=== PATIENT | female | born 1950 | race Caucasian/White ===

== ENCOUNTER 2024-08-18 19:18 | Inpatient (IN) | payer OTHER, SELFPAY ==
[2024-08-18] VITALS (8 sets, daily range): BP systolic 90–121; BP diastolic 65–97; BMI 22.8; BMI 22.1
--- NOTE | 2024-08-18 14:13 | ED.GENMED ---
History of Present Illness
General
Chief Complaint: Breathing Problem
Source: patient
Exam Limitations: none
Time Seen by Provider: 08/18/24 14:03
History of Present Illness
History of Present Illness:
See MDM
Past History
Past History
ED Past Medical History: COPD, HTN and Hypercholesterolemia
ED Past Surgical History: Appendectomy, Bowel resection and Other (All Teeth removed)
Social History
Tobacco: Former smoker
Alcohol: None
Personal:
Living: with family
Family History
Family History: Negative Diabetes, Hypertension or CAD
Phy Exam
Physical Exam
Physical Exam:
See MDM
Scores
Heart Failure Risk
Heart Failure Risk Score: Not Applicable
Course
Orders/Labs/Results
Orders:
Orders
08/18/24 13:41
Electrocardiogram (*1) Urgent
Reason for Study: Shortness of Breath
EKG- Treatment ONCE
08/18/24 14:12
Ipratropium/Albuterol Sulfate [Duoneb] 3 ml INH R NOW STA
CR Chest - 2 Views Urgent
Comment:
Reason For Exam: SOB
08/18/24 14:13
CT Abd/pelvis W Iv Cont Urgent
Comment:
Reason For Exam: general abd pain
0.9% Sodium Chloride 1000 ml [Nss] 1,000 ml IV BOLUS
08/18/24 14:18
COVID-19 Antigen Urgent
Source: Nasal Swab
Complete Blood Count/With Diff Urgent
Comprehensive Metabolic Panel Urgent
Lipase Urgent
Influenza A+B Rapid Molecular Urgent
JENNIFER Source: Nasal Swab
Specimen Description:
08/18/24 17:23
Piperacillin/Tazo 3.375 Gram [Zosyn] 3.375 gram in 50 ml IV NOW
Vancomycin [Vancocin] 1,500 mg 0.9% Sodium Chloride 500 ml [Nss] 500 ml IV NOW
Abnormal Lab Results
08/18/24
14:18
WBC 13.1 H 10^3/uL
(4.8-10.8)
MCHC 32.6 L g/dL
(33.0-37.0)
MPV 10.6 H fL
(7.4-10.4)
Abs Immat Gran (auto) 0.1 H 10^3/uL
(0-0.05)
Absolute Neuts (auto) 12.2 H 10^3/uL
(1.4-6.5)
Absolute Lymphs (auto) 0.4 L 10^3/uL
(1.2-3.4)
Immature Gran % 0.7 H %
(0-0.5)
Neutrophils % 93.2 H %
(42.2-75.2)
Lymphocytes % 2.7 L %
(20.5-51.1)
Carbon Dioxide 31 H mmol/L
(22-30)
Creatinine 0.5 L mg/dL
(0.6-1.0)
Glucose 140 H mg/dl
(70-99)
ALT 41 H U/L
(0-35)
Total Protein 5.8 L g/dl
(6.3-8.2)
Albumin 3.2 L g/dl
(3.5-5.0)
08/18/24 14:18
08/18/24 14:18
Vital Signs
Initial and Last Documented VS:
Initial Vital Signs
Temp Pulse Resp BP Pulse Ox
98.4 F 108 22 121/76 89
08/18/24 13:36 08/18/24 13:36 08/18/24 13:36 08/18/24 13:36 08/18/24 13:36
Last Documented Vital Signs
Temp Pulse Resp BP Pulse Ox
98.4 F 102 23 110/77 96
08/18/24 13:36 08/18/24 17:15 08/18/24 17:15 08/18/24 14:23 08/18/24 17:15
MDM/Problems Addressed
Differential Diagnosis Includes:
HPI and MDM Narrative:
74-year-old female presenting with 3 weeks of shortness of breath. She does have a history of COPD and is chronically on 2 to 4 L nasal cannula. Patient states it has significantly worsened in the past few days. There is now associated with
nausea and abdominal pain. On exam, she does have a very faint basilar expiratory wheeze. She is on 10 mg of prednisone daily. She is not interested in increasing her steroids. Will give a DuoNeb and obtain chest x-ray. Patient does have vague
generalized abdominal pain. Will obtain CT
Physical exam
General: Well appearing and non-toxic
HEENT: protecting airway
Neck: appears supple
CV: No evidence of cyanosis. Mild tachycardia
Resp: No accessory muscle use. Mild expiratory wheeze at bases
Abd: Non-distended. Generalized tenderness without rebound
Extremities: No deformities. No unilateral leg edema or tenderness devious palpation
Neuro: alert
Psych: Normal affect
Skin: Intact
Problems Addressed including Acute and Chronic Conditions affecting care:
1. Shortness of breath
Acuity: acute
Prognosis: stable
Details: Potentially COPD exacerbation. She is stable on 2 L nasal cannula. Will obtain chest x-ray and provide DuoNeb
2. Abdominal pain
Acuity: acute
Prognosis: stable
Details: Will obtain CT A/P
Updates
Chest x-ray concerning for right middle lobe pneumonia. CT shows evidence of colitis. Will start vancomycin and Zosyn to cover both sources. Given her prior history, will admit
Differential Diagnosis (but not limited to): COPD exacerbation, viral syndrome, pneumonia, pancreatitis, cholecystitis
Testing considered: Right upper quadrant ultrasound
Drug therapy (if applicable): OTC meds, please see d/c instruction regarding Rx drugs
Amount and/or Complexity of Data Reviewed
Clinical info obtained from: Patient
External data reviewed: N/A
Labs I independently reviewed (but not limited to): Leukocytosis
Radiology: X-ray independently reviewed: Chest x-ray shows right middle lobe pneumonia
The CT scan was personally and independently reviewed. In addition, official CT report reviewed.
Pulse Ox: not hypoxic
EKG independently reviewed: Sinus tachycardia, normal axis, PVCs, no STEMI
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
Critical Care: N/A
Risk of Complication:
Social Determinants of health: Good social support
Discussed with other providers: Hospitalist
Escalation of Care includes Admit/Obs: Given her chronic COPD, will start IV antibiotics for her pneumonia and admit
Occasional wrong word or 'sound a like' substitutions may have occurred due to the inherent limitations of voice recognition software. Read the chart carefully and recognize, using context, where substitutions have occurred.
*Critical Care Note
Total Time (30-74mins, 75-104mins- exclusive of procedures): Not Applicable
ED Attending Note
-
Portions of this chart may have been created with voice recognition software.� Occasional wrong word or��sound alike� substitutions may have occurred due to the inherent limitations of voice recognition software.
Discharge Plan
Departure
Patient Disposition: Admit
Date of Disposition: 08/18/24
Time of Disposition: 17:26
Admit to: Med/Surg
Presentation/result/management discussed w/ accepting MD/DO: Hospitalist
Discharge Problem:
PNA (pneumonia), Colitis
Prescriptions:
No Action
lorazepam 1 MG tablet
2 mg PO HSPRN PRN (Reason: sleep/anxiety)
ipratropium-albuterol 3 ML solution for nebulization
3 ml inhalation R QID
atenolol 25 MG tablet
25 mg PO HS
albuterol sulfate 1 PUFF HFA aerosol inhaler
2 puff inhalation R Q4HPRN PRN (Reason: shortness of breath)
B-complex with vitamin C 1 CAPLET tablet
1 cap PO DAILY
vitamin E (dl, acetate) 100 UNITS capsule
100 units PO DAILY
cholecalciferol (vitamin D3) 1,000 UNITS tablet
1,000 units PO DAILY
fluoxetine 10 MG capsule
10 mg PO DAILY Qty: 30 0RF
sertraline 50 MG tablet
150 mg PO DAILY Qty: 30 0RF
prednisone 10 MG tablet
10 mg PO DAILY Qty: 22 0RF
Rx Instructions:
Take 40mg 8/1, 30mg 8/2-8/4, 20mg 8/5-8/7, 10mg 8/8-8/10
azithromycin 250 MG tablet
250 mg PO DAILY Qty: 30 0RF
Referrals:
Derrick Crowe, DO [Family Provider] -
Interventions
Interventions:
*Risk Screen - Suicide Last Done: 08/18/24 13:36
*General Assessment Last Done: 08/18/24 13:36
*Neglect/Abuse Screening Last Done: 08/18/24 14:22
*ED- Fall Risk Assessment Last Done: 08/18/24 14:22
*ED COVID-19 Vaccine History Last Done: 08/18/24 13:36
ED- Cardiac Assessment Last Done: 08/18/24 14:23
ED- Pulmonary Assessment Last Done: 08/18/24 14:23
Discharge Date and Time
Print Language: LAO
[2024-08-18] MEDS: NSS 1000 IV ×2 (14:18→21:11)
[2024-08-18] MEDS: DUONEB 3 ML INH ×2 (14:19→20:31)
[2024-08-18 14:37] LABS: % Basophils 0.5 % (0-2); % Eosinophils 0.2 % (0-6); % Immature Granulocytes 0.7 % (0-0.5); % Lymphocytes 2.7 % (20.5-51.1); % Monocytes 2.7 % (1.7-9.3); % Neutrophils 93.2 % (42.2-75.2); Absolute Basophils 0.1 10^3/uL (0-0.2); Absolute Immature Granulocytes 0.1 10^3/uL (0-0.05); Absolute Lymphocytes 0.4 10^3/uL (1.2-3.4); Absolute Monocytes 0.4 10^3/uL (0.1-0.6); Absolute Neutrophils 12.2 10^3/uL (1.4-6.5); Hematocrit 37.1 % (37.0-47.0); Hemoglobin 12.1 g/dL (12.0-16.0); Mean Corp Hgb Conc. 32.6 g/dL (33.0-37.0); Mean Corpuscular Hgb 28.8 pg (27.0-31.0); Mean Corpuscular Volume 88.3 fL (81.0-99.0); Mean Platelet Volume 10.6 fL (7.4-10.4); Nucleated Red Blood Cells % 0 %; Platelet Count 206 10^3/uL (130-400); Red Cell Dist. Width 13.3 % (11.5-14.5); White Blood Cell Count 13.1 10^3/uL (4.8-10.8)
[2024-08-18 14:45] LABS: ALT (SGPT) 41 U/L (0-35); AST (SGOT) 30 U/L (14-36); Albumin 3.2 g/dl (3.5-5.0); Alkaline Phosphatase 101 U/L (38-126); Blood Urea Nitrogen 13 mg/dl (7-17); Calcium 8.8 mg/dl (8.4-10.2); Carbon Dioxide 31 mmol/L (22-30); Chloride 104 mmol/L (98-107); Estimated Creatinine Clearance 60 ml/min; Glucose 140 mg/dl (70-99); Lipase 51 U/L (23-300); Potassium 3.8 mmol/L (3.5-5.1); Sodium 140 mmol/L (135-145); Total Bilirubin 0.6 mg/dl (0.2-1.3); Total Protein 5.8 g/dl (6.3-8.2); eGFR > 60.00
[2024-08-18 14:59] LABS: COVID-19 Antigen Negative (Negative)
--- NOTE | 2024-08-18 17:32 | HPS.HSE ---
Family Physician
-
Family Physician: Derrick Crowe
Chief Complaint
-
shortness of breath
History of Present Illness
74 female COPD on 2 L at bedtime as needed baseline hypertension hyperlipidemia history appendectomy bowel resection presents with persistent abdomen discomfort intermittent diarrhea nausea past few weeks. Denies vomiting. Endorses appetite loss.
Shortness of breath progressively worsened past week requiring oxygen at home continuously. Denies fevers reports chills. Endorses coughing previously productive now dry. Respiratory status stable on 2 L. Afebrile sinus tachy but blood pressure
stable. Labs notable for mild leukocytosis. Possible sepsis though no lactic acidosis. Chest x-ray and CT abdomen pelvis concerning for pneumonia and colitis.
Medical History
Past Medical History
Past Medical History: Reports Other (As above)
Past Surgical History: Reports Other (As above)
Social History
Tobacco: Non-smoker
Alcohol: Occasional
Drug: None
Living: With Family
Employment: Retired
Family History
Family History: Not pertinent (Reviewed)
Allergies / Home Medications
Allergies reflects when Allergies were last updated in [email or web address].
Home Medications with original date entered in [email or web address]
Allergy/Medication List:
Allergies
Allergy/AdvReac Type Severity Reaction Status Date / Time
codeine Allergy Itching Verified 08/18/24 13:40
Home Medications
lorazepam 1 mg tablet 1 mg PO HSPRN PRN sleep/anxiety 03/01/18
atenolol 25 mg tablet 25 mg PO HS 06/14/18
ipratropium 0.5 mg-albuterol 3 mg (2.5 mg base)/3 mL nebulization soln 3 ml inhalation R QID 06/14/18
budesonide 160 mcg-glycopyr 9 mcg-formot 4.8 mcg/actuation HFA inhaler (Breztri Aerosphere) 2 inh inhalation R BID 08/18/24
levalbuterol tartrate 45 mcg/actuation aerosol inhaler 2 inh inhalation R Q6HPRN PRN sob 08/18/24
lorazepam 1 mg tablet 0.5 mg PO DAILYPRN PRN anxiety 08/18/24
prednisone 5 mg tablet 10 mg PO DAILY 08/18/24
sertraline 100 mg tablet 150 mg PO DAILY 08/18/24
Review of Systems
-
A 12 point ROS was completed and negative except as noted: Yes
Constitutional: Reports Other (As below)
Physical Exam
Vital Signs
Vital Signs
Temp Pulse Resp BP Pulse Ox
98.4 F 102 23 110/77 96
08/18/24 13:36 08/18/24 17:15 08/18/24 17:15 08/18/24 14:23 08/18/24 17:15
Physical Exam
General: Other (As below)
Laboratory Results
-
08/18/24 14:18
08/18/24 14:18
Laboratory Results
Total Bilirubin 0.6 mg/dl (0.2-1.3) 08/18/24 14:18
AST 30 U/L (14-36) 08/18/24 14:18
ALT 41 U/L (0-35) H 08/18/24 14:18
Alkaline Phosphatase 101 U/L (38-126) 08/18/24 14:18
Lipase 51 U/L (23-300) 08/18/24 14:18
Impression/Plan
-
ROS
General: Denies fever reports chills
Neuro: Denies seizure shaking loss of consciousness dizziness vertigo
Psych: denies depression hallucinations confusion manic episodes
Endocrine: Denies polyuria polydipsia polyphagia
HEENT: Denies blindness visual disturbances epistaxis
Pulmonary: reports dry cough sob requiring oxygen supplementation
Cardiovascular: denies chest pain palpitations leg swelling
Hematology: denies signs symptoms of anemia easy bruising/bleeding
Gastrointestinal: reports nausea right sided abd pain tenderness intermittent diarrhea denies vomiting hematemesis hematochezia melena
Genito-Urinary: denies retention incontinence dysuria
Musculoskeletal: denies joint pain weakness
Dermatology: denies rash laceration bruising
Physical Exam
General: No pallor, cyanosis, or jaundice.
HEENT: Throat clear. PERRLA Normocephalic atraumatic
NECK: Supple. No JVD Carotid Bruits
RESPIRATORY: Lungs clear to auscultation. No crackles wheezes stridor
CVS: S1, S2 sinus tachy. No murmur, rub or gallop.
ABDOMEN: Soft, mild moderate tenderness. No distension. BS+/normal.
EXTREMITIES: No peripheral cyanosis or edema.
REPAIRER ART OBJECTS: AOx3. conversant coherent
IMPRESSION:
74 female COPD on 2 L at bedtime as needed baseline hypertension hyperlipidemia history appendectomy bowel resection depression/anxiety presents with persistent abdomen discomfort intermittent diarrhea nausea past few weeks. Denies vomiting.
Endorses appetite loss. Shortness of breath progressively worsened past week requiring oxygen at home continuously. Denies fevers reports chills. Endorses coughing previously productive now dry. Respiratory status stable on 2 L. Afebrile sinus
tachy but blood pressure stable. Labs notable for mild leukocytosis. Possible sepsis though no lactic acidosis. Chest x-ray and CT abdomen pelvis concerning for pneumonia and colitis.
PLAN:
#Sepsis (tachy leukocytosis) stable BP no lactic acidosis
#Pneumonia
#Colitis
#Acute on Chronic Respiratory Insufficiency
#COPD baseline 2L prn bedtime
Tele admit
cont empiric Vanc Zosyn
MRSA screen
Check blood sputum stool cultures
cont O2 supplementation maintain sat >92%
trend wbc monitor for fever
Tylenol Toradol prn pain
cont home inhalers scheduled nebulizer treatments
cont home prednisone 10 mg daily
#Reported Hx Hypertension
cont home atenolol with holding parameters
#Reported hx HLD
check lipid panel in AM
#Depression/Anxiety
cont home Sertraline prn Ativan for anxiety and sleep
DVT ppx Lovenox
GI ppx protonix
Full Code per patient
I spent a total of 80 minutes with the patient or on the floor. More than 50% of this time involved counseling and coordination of care.
[2024-08-18] MEDS: ZOSYN 50 IV ×2 (17:35→23:38)
[2024-08-18] MEDS: VANCOCIN 530 MG IV (17:50)
[2024-08-18 18:53] LABS: Lactic Acid 1.1 mmol/L (0.7-2.0)
--- NOTE | 2024-08-18 20:30 | PTCARENOTE ---
Pt brought to unit from ED via stretcher. Pt ambulated to bed. A&Ox3 on 2L of oxygen. Oriented to unit. Call light within reach. Plan of care ongoing.
[2024-08-18] MEDS: SYMBICORT 160/4.5 MCG INHALER 2 PUFF INH (20:43)
[2024-08-18] MEDS: TYLENOL 650 MG PO (21:09)
[2024-08-18] MEDS: PROTONIX 40 MG PO (21:09)
[2024-08-18] MEDS: TENORMIN 25 MG PO (21:10)
--- NOTE | 2024-08-18 21:22 | PHA.VAN.IN ---
Assessment
- Assessment
Renal Function: Appears similar to baseline
Concomitant Antimicrobials: ZOSYN
- Previous Dosing Experience
Previous Regimen: NONE
AUC Dosing Plan
- Dosing Variables
Dosing Weight (kg): 51.3
Dosing CrCl (ml/min): 60
Vd coefficient (L/kg): 0.7
- Empiric Dosing
Initial / Loading Dose: 1500MG
Maintenance Regimen: 1GM IV Q24H
Estimated AUC (mcg*h/mL): 528
Estimated Peak (mcg*h/mL): 38.3
Estimated Trough (mcg/ml): 11.0
Estimated Half Life (H): 12.8
Pharmacokinetics Vancomycin I
- -
Patient Age: 74
Patient Sex: Female
Vancomycin Day #: 1
Indication: Pulmonary/Respiratory (SEPSIS)
Requesting Provider: BEE
Height / Weight:
Height 5 ft
Actual Weight 51.284 kg
Pertinent Past Medical History: COPD
- Vital Signs / Lab Results
Temp Pulse Resp BP Pulse Ox
98.0 F 100 18 121/75 93
08/18/24 20:38 08/18/24 21:10 08/18/24 20:47 08/18/24 21:10 08/18/24 20:47
Lab Results - Hematology
08/18/24
14:18
WBC 13.1 H
Lab Results - Chemistry
08/18/24
14:18
BUN 13
Creatinine 0.5 L
Estimated Creat Clear 60
Albumin 3.2 L
08/18/24
18:26
Lactic Acid 1.1
Microbiology Results
08/18/24 14:18 Influenza Types A & B (ÓSCAR) - Final
Nasal Swab Negative for Influenza A & B, NAAT
Negative results must be combined with clinical observations
and patient history.
Nucleic Acid Amplification test (NAAT)performed on the
[employer] NOW platform.
[2024-08-18] MEDS: ATIVAN 1 MG PO (21:26)
[2024-08-18] MEDS: TORADOL 15 MG IV (23:53)
[2024-08-19] VITALS (7 sets, daily range): BP systolic 99–116; BP diastolic 53–72; BMI 22.1
[2024-08-19] MEDS: ZOSYN 50 IV ×3 (05:00→17:16)
[2024-08-19] MEDS: VANCOCIN 200 IV (05:34)
[2024-08-19 06:22] LABS: Hematocrit 33.1 % (37.0-47.0); Hemoglobin 10.6 g/dL (12.0-16.0); Mean Corpuscular Hgb 28.8 pg (27.0-31.0); Mean Corpuscular Volume 89.9 fL (81.0-99.0); Mean Platelet Volume 10.8 fL (7.4-10.4); Platelet Count 191 10^3/uL (130-400); Red Blood Cell Count 3.68 10^6/uL (4.20-5.40); Red Cell Dist. Width 13.3 % (11.5-14.5); White Blood Cell Count 7.1 10^3/uL (4.8-10.8)
[2024-08-19 06:42] LABS: Blood Urea Nitrogen 10 mg/dl (7-17); Carbon Dioxide 30 mmol/L (22-30); Chloride 107 mmol/L (98-107); Estimated Creatinine Clearance 51 ml/min; Glucose 95 mg/dl (70-99); Magnesium 1.6 mg/dl (1.6-2.3); Potassium 3.7 mmol/L (3.5-5.1); Sodium 143 mmol/L (135-145); eGFR > 60.00
--- NOTE | 2024-08-19 07:04 | W.PN.HOSP.TC ---
Today's Communication/Plan
-
see a/p
Assessment / Plan
Assessment / Plan
Physical Exam
General: No pallor, cyanosis, or jaundice.
HEENT: Throat clear. PERRLA Normocephalic atraumatic
NECK: Supple. No JVD Carotid Bruits
RESPIRATORY: Lungs clear to auscultation. No crackles wheezes stridor
CVS: S1, S2 sinus tachy. No murmur, rub or gallop.
ABDOMEN: Soft, mild moderate tenderness. No distension. BS+/normal.
EXTREMITIES: No peripheral cyanosis or edema.
REPORT DEVELOPER: AOx3. conversant coherent
IMPRESSION:
74 female COPD on 2 L at bedtime as needed baseline hypertension hyperlipidemia history appendectomy bowel resection depression/anxiety presents with persistent abdomen discomfort intermittent diarrhea nausea past few weeks. Denies vomiting.
Endorses appetite loss. Shortness of breath progressively worsened past week requiring oxygen at home continuously. Denies fevers reports chills. Endorses coughing previously productive now dry. Respiratory status stable on 2 L. Afebrile sinus
tachy but blood pressure stable. Labs notable for mild leukocytosis. Possible sepsis though no lactic acidosis. Chest x-ray and CT abdomen pelvis concerning for pneumonia and colitis.
PLAN:
#Sepsis (tachy leukocytosis) stable BP no lactic acidosis
#Pneumonia
#Colitis
#Acute on Chronic Respiratory Insufficiency
#COPD baseline 2L prn bedtime
Tele admit
cont Zosyn
MRSA neg, vanc discontinued
follow blood sputum stool cultures
Cdiff neg
cont O2 supplementation maintain sat >92%, wean as tolerated
trend wbc monitor for fever
Tylenol Toradol prn pain
cont home inhalers scheduled nebulizer treatments
cont home prednisone 10 mg daily
compazine prn nausea
#Reported Hx Hypertension
cont home atenolol with holding parameters
#Reported hx HLD
check lipid panel
#Depression/Anxiety
cont home Sertraline prn Ativan for anxiety and sleep
DVT ppx Lovenox
GI ppx protonix
Full Code
I spent a total of 50 minutes with the patient or on the floor. More than 50% of this time involved counseling and coordination of care.
Anticipated Discharge: 24 - 48 hours
Subjective/Interval History
-
Date of Service: August 19, 2024
no acute distress. reports some improvement in appetite nausea. Diarrhea persists.
Objective Data
-
Labs:
Laboratory Results
08/19/24
05:55
WBC 7.1
Hgb 10.6 L
Hct 33.1 L
Plt Count 191
Sodium 143
Potassium 3.7
Chloride 107
Carbon Dioxide 30
BUN 10
Creatinine 0.7
Glucose 95
Calcium 8.0 L
Vital Signs:
Vital Signs
Temp Pulse Resp BP Pulse Ox
98.0 F 72 17 111/72 97
08/19/24 03:11 08/19/24 03:11 08/19/24 03:11 08/19/24 03:11 08/19/24 03:11
[2024-08-19] MEDS: VENTOLIN NEBULES 2.5 MG INH ×4 (07:16→20:26)
[2024-08-19] MEDS: SYMBICORT 160/4.5 MCG INHALER 2 PUFF INH ×2 (07:17→20:27)
[2024-08-19] MEDS: SPIRIVA RESPIMAT 2.5 MCG 2 PUFF INH (07:17)
[2024-08-19] MEDS: PROTONIX 40 MG PO (07:27)
[2024-08-19] MEDS: DELTASONE PO ×2 (07:27→07:33)
[2024-08-19] MEDS: ZOLOFT 150 MG PO (07:27)
[2024-08-19] MEDS: TORADOL 15 MG IV ×2 (07:55→18:33)
[2024-08-19] MEDS: MAGNESIUM SULFATE 100 IV (09:49)
[2024-08-19] MEDS: COMPAZINE 10 MG IV (11:18)
[2024-08-19] MEDS: NSS IV (11:57)
--- NOTE | 2024-08-19 15:28 | CM ---
Met with patient at bedside; initial assessment completed
Pharmacy verified: [facility] @ [address], [place]
Some financial insecurity; provided [employer] information
Lives in a multilevel home; her 70 yr old sister lives with her; 5 steps to enter; 16 steps to 2nd floor bed/bath; powder room 1st floor
PLOF: independent with ambulation, stairs, ADLs; drives; retired; Needs Oxygen 2-3 liters @ night
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
NO SNF or Home Health utilization history
Sister will transport home
Plan: PT assessment pending; CM will monitor for disposition needs
[2024-08-19] MEDS: LOVENOX 40 MG SC (17:16)
[2024-08-19] MEDS: TENORMIN 25 MG PO (21:55)
[2024-08-20] VITALS (7 sets, daily range): BP systolic 112–142; BP diastolic 64–90; O2SAT 86
[2024-08-20] MEDS: ZOSYN 50 IV ×4 (00:17→17:17)
[2024-08-20] MEDS: TORADOL 15 MG IV ×3 (01:10→23:54)
[2024-08-20] MEDS: ATIVAN 1 MG PO ×2 (02:32→23:52)
--- NOTE | 2024-08-20 06:25 | W.PN.HOSP.TC ---
Today's Communication/Plan
-
see a/p
Assessment / Plan
Assessment / Plan
Physical Exam
General: No pallor, cyanosis, or jaundice.
HEENT: Throat clear. PERRLA Normocephalic atraumatic
NECK: Supple. No JVD Carotid Bruits
RESPIRATORY: Lungs clear to auscultation. No crackles wheezes stridor
CVS: S1, S2 sinus tachy. No murmur, rub or gallop.
ABDOMEN: Soft, mild moderate tenderness. No distension. BS+/normal.
EXTREMITIES: No peripheral cyanosis or edema.
BRICK CATCHER: AOx3. conversant coherent
IMPRESSION:
74 female COPD on 2 L at bedtime as needed baseline hypertension hyperlipidemia history appendectomy bowel resection depression/anxiety presents with persistent abdomen discomfort intermittent diarrhea nausea past few weeks. Denies vomiting.
Endorses appetite loss. Shortness of breath progressively worsened past week requiring oxygen at home continuously. Denies fevers reports chills. Endorses coughing previously productive now dry. Respiratory status stable on 2 L. Afebrile sinus
tachy but blood pressure stable. Labs notable for mild leukocytosis. Possible sepsis though no lactic acidosis. Chest x-ray and CT abdomen pelvis concerning for pneumonia and colitis.
PLAN:
#Sepsis (tachy leukocytosis) stable BP no lactic acidosis
#Pneumonia
#Colitis
#Acute on Chronic Respiratory Insufficiency
#COPD baseline 2L prn bedtime
Tele admit
cont Zosyn, to transition to oral abx tomorrow if remains stable/continues to improve
Home oxygen assessment in AM
MRSA neg, vanc discontinued
follow blood sputum stool cultures NGTD
sputum culture over-contaminated
Cdiff neg
cont O2 supplementation maintain sat >92%, wean as tolerated
trend wbc monitor for fever
Tylenol Toradol prn pain
cont home inhalers scheduled nebulizer treatments
cont home prednisone 10 mg daily
compazine prn nausea
#Reported Hx Hypertension
cont home atenolol with holding parameters
#Reported hx HLD
lipid panel appreciated wnl
#Depression/Anxiety
cont home Sertraline prn Ativan for anxiety and sleep
PT eval appreciated no skilled needs
DVT ppx Lovenox
GI ppx protonix
Full Code
I spent a total of 50 minutes with the patient or on the floor. More than 50% of this time involved counseling and coordination of care.
Anticipated Discharge: 24 - 48 hours
Subjective/Interval History
-
Date of Service: August 20, 2024
No acute distress. Reports symptoms improving, including diarrhea.
Objective Data
-
Labs:
Laboratory Results
08/20/24
06:00
WBC Pending
Hgb Pending
Hct Pending
Plt Count Pending
Sodium Pending
Potassium Pending
Chloride Pending
Carbon Dioxide Pending
BUN Pending
Creatinine Pending
Glucose Pending
Calcium Pending
Vital Signs:
Vital Signs
Temp Pulse Resp BP Pulse Ox
97.8 F 72 17 120/79 95
08/20/24 03:23 08/20/24 03:23 08/20/24 03:23 08/20/24 03:23 08/20/24 03:23
I&O
08/18/24 08/19/24 08/20/24
06:59 06:59 06:59
Intake Total 120 / 120
Balance 120 / 120
[2024-08-20] MEDS: SPIRIVA RESPIMAT 2.5 MCG 2 PUFF INH (07:43)
[2024-08-20] MEDS: VENTOLIN NEBULES 2.5 MG INH ×4 (07:43→19:16)
[2024-08-20] MEDS: SYMBICORT 160/4.5 MCG INHALER 2 PUFF INH ×2 (07:43→19:16)
[2024-08-20 07:55] LABS: Hemoglobin 11.7 g/dL (12.0-16.0); Mean Corp Hgb Conc. 32.5 g/dL (33.0-37.0); Mean Corpuscular Hgb 28.7 pg (27.0-31.0); Mean Corpuscular Volume 88.5 fL (81.0-99.0); Mean Platelet Volume 10.6 fL (7.4-10.4); Platelet Count 191 10^3/uL (130-400); Red Blood Cell Count 4.07 10^6/uL (4.20-5.40); Red Cell Dist. Width 13.2 % (11.5-14.5); White Blood Cell Count 8.4 10^3/uL (4.8-10.8)
[2024-08-20 08:12] LABS: Blood Urea Nitrogen 10 mg/dl (7-17); Calcium 8.3 mg/dl (8.4-10.2); Carbon Dioxide 31 mmol/L (22-30); Chloride 105 mmol/L (98-107); Estimated Creatinine Clearance 60 ml/min; Glucose 88 mg/dl (70-99); HDL Cholesterol 49 mg/dl; LDL Cholesterol, Calculated 109 mg/dl; Magnesium 2.4 mg/dl (1.6-2.3); Potassium 3.3 mmol/L (3.5-5.1); Sodium 142 mmol/L (135-145); Total Cholesterol 184 mg/dl (50-199); Triglyceride 134 mg/dl (10-149); Very Low Density Lipoprotein 26 mg/dl (0-30); eGFR > 60.00
[2024-08-20 08:23] LABS: Vitamin D, 25-OH*** 36.1 ng/mL (30-80)
[2024-08-20] MEDS: PROTONIX 40 MG PO (08:42)
[2024-08-20] MEDS: ZOLOFT 150 MG PO (08:42)
[2024-08-20] MEDS: DELTASONE 10 MG PO (08:42)
[2024-08-20] MEDS: COMPAZINE 10 MG IV ×2 (08:43→15:29)
[2024-08-20] MEDS: FLUSH (NSS) 2 FLUSH IV (08:44)
[2024-08-20] MEDS: KCL 40 MEQ PO (12:12)
[2024-08-20] MEDS: TYLENOL 650 MG PO (13:04)
[2024-08-20] MEDS: LOVENOX 40 MG SC (17:18)
[2024-08-20] MEDS: TENORMIN 25 MG PO (22:42)
[2024-08-21] MEDS: ZOSYN 50 IV ×4 (00:01→17:43)
[2024-08-21 03:00] VITALS: BP 155/91
[2024-08-21 06:08] LABS: Hematocrit 34.2 % (37.0-47.0); Hemoglobin 11.1 g/dL (12.0-16.0); Mean Corp Hgb Conc. 32.5 g/dL (33.0-37.0); Mean Corpuscular Hgb 28.8 pg (27.0-31.0); Mean Corpuscular Volume 88.8 fL (81.0-99.0); Mean Platelet Volume 11.1 fL (7.4-10.4); Platelet Count 203 10^3/uL (130-400); Red Blood Cell Count 3.85 10^6/uL (4.20-5.40); Red Cell Dist. Width 13.2 % (11.5-14.5); White Blood Cell Count 6.5 10^3/uL (4.8-10.8)
[2024-08-21 06:36] LABS: Blood Urea Nitrogen 14 mg/dl (7-17); Calcium 8.4 mg/dl (8.4-10.2); Carbon Dioxide 34 mmol/L (22-30); Chloride 105 mmol/L (98-107); Estimated Creatinine Clearance 60 ml/min; Glucose 82 mg/dl (70-99); Phosphorus 2.8 mg/dl (2.5-4.5); Potassium 3.5 mmol/L (3.5-5.1); Sodium 141 mmol/L (135-145); eGFR > 60.00
--- NOTE | 2024-08-21 06:48 | W.PN.HOSP.TC ---
Today's Communication/Plan
-
see a/p
Assessment / Plan
Assessment / Plan
Physical Exam
General: No pallor, cyanosis, or jaundice.
HEENT: Throat clear. PERRLA Normocephalic atraumatic
NECK: Supple. No JVD Carotid Bruits
RESPIRATORY: Lungs clear to auscultation. No crackles wheezes stridor
CVS: S1, S2 sinus tachy. No murmur, rub or gallop.
ABDOMEN: Soft, mild moderate tenderness. No distension. BS+/normal.
EXTREMITIES: No peripheral cyanosis or edema.
BODY SHOP TECHNICIAN: AOx3. conversant coherent
IMPRESSION:
74 female COPD on 2 L at bedtime as needed baseline hypertension hyperlipidemia history appendectomy bowel resection depression/anxiety presents with persistent abdomen discomfort intermittent diarrhea nausea past few weeks. Denies vomiting.
Endorses appetite loss. Shortness of breath progressively worsened past week requiring oxygen at home continuously. Denies fevers reports chills. Endorses coughing previously productive now dry. Respiratory status stable on 2 L. Afebrile sinus
tachy but blood pressure stable. Labs notable for mild leukocytosis. Possible sepsis though no lactic acidosis. Chest x-ray and CT abdomen pelvis concerning for pneumonia and colitis.
PLAN:
#Sepsis (tachy leukocytosis) stable BP no lactic acidosis
#Pneumonia
#Colitis
#Acute on Chronic Respiratory Insufficiency
#COPD baseline 2L prn bedtime
Tele admit
cont Zosyn, to transition to oral abx when ready for discharge
Home oxygen assessment 08/21 noted severe exertional dyspnea desaturation tachycardia requiring 6L
Incentive Spirometer
recheck home oxygen assessment 08/22 for improvement
MRSA neg, vanc discontinued
follow blood sputum stool cultures NGTD
sputum culture over-contaminated
Cdiff neg
cont O2 supplementation maintain sat >92%, wean as tolerated
trend wbc monitor for fever
Tylenol Toradol prn pain
cont home inhalers scheduled nebulizer treatments
cont home prednisone 10 mg daily
compazine prn nausea
#Reported Hx Hypertension
cont home atenolol with holding parameters
#Reported hx HLD
lipid panel appreciated wnl
#Depression/Anxiety
cont home Sertraline prn Ativan for anxiety and sleep
PT eval appreciated no skilled needs
DVT ppx Lovenox
GI ppx protonix
Full Code
I spent a total of 50 minutes with the patient or on the floor. More than 50% of this time involved counseling and coordination of care.
Anticipated Discharge: 24 - 48 hours
Subjective/Interval History
-
Date of Service: August 21, 2024
Notes significant improvement in symptoms including diarrhea. Unfortunately exertional dyspnea remains severe requiring 6L to maintain saturation with ambulation. Otherwise patient reports feeling well at rest. Denies new acute issues.
Objective Data
-
Labs:
Laboratory Results
08/21/24
04:40
WBC 6.5
Hgb 11.1 L
Hct 34.2 L
Plt Count 203
Sodium 141
Potassium 3.5
Chloride 105
Carbon Dioxide 34 H
BUN 14
Creatinine 0.6
Glucose 82
Calcium 8.4
Vital Signs:
Vital Signs
Temp Pulse Resp BP Pulse Ox
97.7 F 82 18 155/91 92
08/21/24 03:00 08/21/24 03:00 08/21/24 03:00 08/21/24 03:00 08/21/24 03:00
I&O
08/19/24 08/20/24 08/21/24
06:59 06:59 06:59
Intake Total 600 / 600 580 / 580
Balance 600 / 600 580 / 580
[2024-08-21 07:55] VITALS: BP 156/86
[2024-08-21] MEDS: ZOLOFT 150 MG PO (07:56)
[2024-08-21] MEDS: PROTONIX 40 MG PO (07:56)
[2024-08-21] MEDS: DELTASONE 10 MG PO (07:56)
[2024-08-21] MEDS: SPIRIVA RESPIMAT 2.5 MCG 2 PUFF INH (08:45)
[2024-08-21] MEDS: VENTOLIN NEBULES 2.5 MG INH ×4 (08:45→19:52)
[2024-08-21] MEDS: SYMBICORT 160/4.5 MCG INHALER 2 PUFF INH ×2 (08:45→19:52)
[2024-08-21] MEDS: FLORASTOR 250 MG PO ×2 (10:28→21:50)
[2024-08-21] MEDS: TYLENOL 650 MG PO (10:28)
[2024-08-21 11:58] VITALS: BP 146/86
[2024-08-21 13:09] LABS: D-Dimer 0.41 ug/mlFEU (0.00-0.50)
[2024-08-21] MEDS: TORADOL 15 MG IV (14:41)
[2024-08-21 16:01] VITALS: BP 121/59
[2024-08-21] MEDS: LOVENOX 40 MG SC (17:44)
[2024-08-21 19:00] VITALS: BP 126/71
[2024-08-21] MEDS: TENORMIN 25 MG PO (21:48)
[2024-08-21 23:00] VITALS: BP 130/71
[2024-08-22] MEDS: ATIVAN 1 MG PO (00:03)
[2024-08-22] MEDS: TORADOL 15 MG IV ×2 (00:04→18:45)
[2024-08-22] MEDS: ZOSYN 50 IV ×4 (00:14→18:02)
[2024-08-22 03:00] VITALS: BP 112/73
[2024-08-22] MEDS: COMPAZINE 10 MG IV ×2 (06:32→12:35)
[2024-08-22 06:41] LABS: Hematocrit 33.8 % (37.0-47.0); Hemoglobin 10.9 g/dL (12.0-16.0); Mean Corp Hgb Conc. 32.2 g/dL (33.0-37.0); Mean Corpuscular Hgb 28.5 pg (27.0-31.0); Mean Corpuscular Volume 88.3 fL (81.0-99.0); Mean Platelet Volume 10.7 fL (7.4-10.4); Platelet Count 193 10^3/uL (130-400); Red Blood Cell Count 3.83 10^6/uL (4.20-5.40); Red Cell Dist. Width 13.3 % (11.5-14.5); White Blood Cell Count 5.7 10^3/uL (4.8-10.8)
[2024-08-22 07:04] LABS: Blood Urea Nitrogen 14 mg/dl (7-17); Calcium 8.7 mg/dl (8.4-10.2); Carbon Dioxide 32 mmol/L (22-30); Chloride 105 mmol/L (98-107); Estimated Creatinine Clearance 60 ml/min; Glucose 85 mg/dl (70-99); Magnesium 1.7 mg/dl (1.6-2.3); Phosphorus 3.4 mg/dl (2.5-4.5); Potassium 3.4 mmol/L (3.5-5.1); Sodium 142 mmol/L (135-145); eGFR > 60.00
[2024-08-22 07:16] VITALS: BP 116/62
[2024-08-22] MEDS: SYMBICORT 160/4.5 MCG INHALER 2 PUFF INH ×2 (07:49→19:25)
[2024-08-22] MEDS: SPIRIVA RESPIMAT 2.5 MCG 2 PUFF INH (07:49)
[2024-08-22] MEDS: VENTOLIN NEBULES 2.5 MG INH ×4 (07:49→19:25)
[2024-08-22] MEDS: ZOLOFT 150 MG PO (09:07)
[2024-08-22] MEDS: FLORASTOR 250 MG PO ×2 (09:08→21:14)
[2024-08-22] MEDS: DELTASONE 10 MG PO (09:08)
[2024-08-22] MEDS: PROTONIX 40 MG PO (09:08)
[2024-08-22] MEDS: ZOFRAN 4 MG IV (11:32)
[2024-08-22 11:48] VITALS: BP 144/84
--- NOTE | 2024-08-22 11:56 | W.PN.HOSP.TC ---
Today's Communication/Plan
-
Monitor vital signs see plan
Wean oxygen as tolerated
Will need home O2 evaluation on discharge
Continue antibiotic
Assessment / Plan
Assessment / Plan
Physical Exam
General: No pallor, cyanosis, or jaundice.
HEENT: Throat clear. PERRLA Normocephalic atraumatic
NECK: Supple. No JVD Carotid Bruits
RESPIRATORY: Lungs clear to auscultation
CVS: S1, S2 sinus tachy. No murmur, rub or gallop.
ABDOMEN: Soft, mild moderate tenderness. No distension. BS+/normal.
EXTREMITIES: No peripheral cyanosis or edema.
YARN WASHER: AOx3. conversant coherent
IMPRESSION:
74 female COPD on 2 L at bedtime as needed baseline hypertension hyperlipidemia history appendectomy bowel resection depression/anxiety presents with persistent abdomen discomfort intermittent diarrhea nausea past few weeks. Denies vomiting.
Endorses appetite loss. Shortness of breath progressively worsened past week requiring oxygen at home continuously. Denies fevers reports chills. Endorses coughing previously productive now dry. Respiratory status stable on 2 L. Afebrile sinus
tachy but blood pressure stable. Labs notable for mild leukocytosis. Possible sepsis though no lactic acidosis. Chest x-ray and CT abdomen pelvis concerning for pneumonia and colitis.
PLAN:
#Sepsis (tachy leukocytosis) stable BP no lactic acidosis
#Pneumonia
#Colitis
#Acute on Chronic Respiratory Insufficiency
#COPD baseline 2L prn bedtime
cont Zosyn, to transition to oral abx when ready for discharge
Home oxygen assessment 08/21 noted severe exertional dyspnea desaturation tachycardia requiring 6L
Incentive Spirometer
recheck home oxygen assessment
MRSA neg, vanc discontinued
follow blood sputum stool cultures NGTD
sputum culture over-contaminated
Cdiff neg
cont O2 supplementation maintain sat >92%, wean as tolerated
trend wbc monitor for fever
Tylenol Toradol prn pain
cont home inhalers scheduled nebulizer treatments
cont home prednisone 10 mg daily
compazine prn nausea
#Reported Hx Hypertension
cont home atenolol with holding parameters
#Reported hx HLD
lipid panel appreciated wnl
#Depression/Anxiety
cont home Sertraline prn Ativan for anxiety and sleep
PT eval appreciated no skilled needs
DVT ppx Lovenox
GI ppx protonix
Full Code
Anticipated Discharge: Within 24 hours
Subjective/Interval History
-
Date of Service: August 22, 2024
denies pain
Objective Data
-
Labs:
Laboratory Results
08/22/24
06:11
WBC 5.7
Hgb 10.9 L
Hct 33.8 L
Plt Count 193
Sodium 142
Potassium 3.4 L
Chloride 105
Carbon Dioxide 32 H
BUN 14
Creatinine 0.5 L
Glucose 85
Calcium 8.7
Vital Signs:
Vital Signs
Temp Pulse Resp BP Pulse Ox
97.8 F 91 16 144/84 93
08/22/24 11:02 08/22/24 11:16 08/22/24 11:16 08/22/24 11:48 08/22/24 11:16
I&O
08/21/24 08/22/24 08/23/24
06:59 06:59 06:59
Intake Total 580 / 580 480 / 480
Balance 580 / 580 480 / 480
--- NOTE | 2024-08-22 12:33 | CM ---
Patient seen at bedside
PT eval-no skilled PT needs
declines VN
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
states uses home 02 at hs
PLAN: home, no needs
sister to transport
[2024-08-22] MEDS: TYLENOL 650 MG PO (14:10)
[2024-08-22 16:02] VITALS: BP 104/61
[2024-08-22] MEDS: LOVENOX 40 MG SC (18:03)
[2024-08-22 19:30] VITALS: BP 130/76
[2024-08-22] MEDS: TENORMIN 25 MG PO (21:15)
[2024-08-22] MEDS: ATIVAN 0.5 MG PO (21:27)
[2024-08-22 23:05] VITALS: BP 123/75
[2024-08-23] MEDS: ZOSYN 50 IV ×3 (00:44→12:18)
[2024-08-23] MEDS: ATIVAN 1 MG PO (00:45)
[2024-08-23 03:56] VITALS: BP 108/62
[2024-08-23 06:58] LABS: Hematocrit 33.6 % (37.0-47.0); Hemoglobin 10.6 g/dL (12.0-16.0); Mean Corp Hgb Conc. 31.5 g/dL (33.0-37.0); Mean Corpuscular Hgb 28.5 pg (27.0-31.0); Mean Corpuscular Volume 90.3 fL (81.0-99.0); Mean Platelet Volume 10.7 fL (7.4-10.4); Platelet Count 176 10^3/uL (130-400); Red Blood Cell Count 3.72 10^6/uL (4.20-5.40); Red Cell Dist. Width 13.5 % (11.5-14.5); White Blood Cell Count 5.4 10^3/uL (4.8-10.8)
[2024-08-23 07:19] LABS: Blood Urea Nitrogen 19 mg/dl (7-17); Calcium 8.8 mg/dl (8.4-10.2); Carbon Dioxide 36 mmol/L (22-30); Chloride 105 mmol/L (98-107); Estimated Creatinine Clearance 51 ml/min; Glucose 87 mg/dl (70-99); Magnesium 1.6 mg/dl (1.6-2.3); Phosphorus 3.5 mg/dl (2.5-4.5); Potassium 3.7 mmol/L (3.5-5.1); Sodium 142 mmol/L (135-145); eGFR > 60.00
[2024-08-23] MEDS: VENTOLIN NEBULES 2.5 MG INH ×2 (07:23→11:38)
[2024-08-23] MEDS: SPIRIVA RESPIMAT 2.5 MCG 2 PUFF INH (07:24)
[2024-08-23] MEDS: SYMBICORT 160/4.5 MCG INHALER 2 PUFF INH (07:24)
[2024-08-23 07:26] VITALS: BP 95/51
[2024-08-23] MEDS: ZOLOFT 150 MG PO (08:34)
[2024-08-23] MEDS: FLORASTOR 250 MG PO (08:40)
[2024-08-23] MEDS: PROTONIX 40 MG PO (08:40)
[2024-08-23] MEDS: DELTASONE 10 MG PO (08:40)
--- NOTE | 2024-08-23 10:14 | CM ---
Patient seen at bedside - IMM explained & signed.
agreeable to VN
Notified [facility] liaision - referral to be added.
per hospitalist will need 02 cont - updated M[facility] from [facility]
She will come to hospital today & deliver tank for her to go home
& discussed portable oxygen concentrator - [facility] liaison will send script to [facility]
PLAN: Home with [facility]
sister to transport
[2024-08-23] MEDS: ATIVAN 0.5 MG PO (10:15)
[2024-08-23] MEDS: TYLENOL 650 MG PO (10:16)
[2024-08-23 10:54] VITALS: BP 122/76
--- NOTE | 2024-08-23 10:57 | VNURNOTE ---
Home Health Liaison met with patient at bedside to discuss VN nurse/therapy, visits, schedule and homebound status. Patient is agreeable and understands that visits at home will be 2-3 x per week to assess and teach medical management. [facility] 1-2 days after discharge from . 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 Confirmed that portable 02 delivered to
bedside. [facility] completed in [facility].
--- NOTE | 2024-08-23 11:02 | W.PN.HOSP.TC ---
Today's Communication/Plan
-
Monitor vital signs see plan
Needs home O2
Switch to oral antibiotic
Discharge today
Time of discharge 38 minutes
Assessment / Plan
Assessment / Plan
Physical Exam
General: No pallor, cyanosis, or jaundice.
HEENT: Throat clear. PERRLA Normocephalic atraumatic
NECK: Supple. No JVD Carotid Bruits
RESPIRATORY: Lungs clear to auscultation
CVS: S1, S2 sinus tachy. No murmur, rub or gallop.
ABDOMEN: Soft, mild moderate tenderness. No distension. BS+/normal.
EXTREMITIES: No peripheral cyanosis or edema.
CASH APPLICATIONS MANAGER: AOx3. conversant coherent
IMPRESSION:
74 female COPD on 2 L at bedtime as needed baseline hypertension hyperlipidemia history appendectomy bowel resection depression/anxiety presents with persistent abdomen discomfort intermittent diarrhea nausea past few weeks. Denies vomiting.
Endorses appetite loss. Shortness of breath progressively worsened past week requiring oxygen at home continuously. Denies fevers reports chills. Endorses coughing previously productive now dry. Respiratory status stable on 2 L. Afebrile sinus
tachy but blood pressure stable. Labs notable for mild leukocytosis. Possible sepsis though no lactic acidosis. Chest x-ray and CT abdomen pelvis concerning for pneumonia and colitis.
PLAN:
#Sepsis (tachy leukocytosis) stable BP no lactic acidosis
#Pneumonia
#Colitis
#Acute on Chronic Respiratory Insufficiency
#COPD baseline 2L prn bedtime
on Zosyn, to transition to oral abx when ready for discharge
Home oxygen assessment 08/22; Patient is in need of oxygen at 2 liters/minute via nasal cannula continuously due to pulse oximetry of 84% on room air at rest. Oxygen will help to improve hypoxemia. Patient is mobile within the home. DuoNeb therapy
has been tried and is ineffective in treating hypoxemia related symptoms. Oxygen is needed to improve symptoms.
Incentive Spirometer
recheck home oxygen assessment
MRSA neg, vanc discontinued
follow blood sputum stool cultures NGTD
sputum culture over-contaminated
Cdiff neg
cont O2 supplementation maintain sat >92%, wean as tolerated
trend wbc monitor for fever
Tylenol Toradol prn pain
cont home inhalers scheduled nebulizer treatments
cont home prednisone 10 mg daily
compazine prn nausea
#Reported Hx Hypertension
cont home atenolol with holding parameters
#Reported hx HLD
lipid panel appreciated wnl
#Depression/Anxiety
cont home Sertraline prn Ativan for anxiety and sleep
PT eval appreciated no skilled needs
DVT ppx Lovenox
GI ppx protonix
Full Code
Anticipated Discharge: Today
Subjective/Interval History
-
Date of Service: August 23, 2024
denies pain
Objective Data
-
Labs:
Laboratory Results
08/23/24
06:31
WBC 5.4
Hgb 10.6 L
Hct 33.6 L
Plt Count 176
Sodium 142
Potassium 3.7
Chloride 105
Carbon Dioxide 36 H
BUN 19 H
Creatinine 0.7
Glucose 87
Calcium 8.8
Vital Signs:
Vital Signs
Temp Pulse Resp BP Pulse Ox
97.5 F 77 16 122/76 96
08/23/24 10:54 08/23/24 10:54 08/23/24 10:54 08/23/24 10:54 08/23/24 10:54
I&O
08/22/24 08/23/24 08/24/24
06:59 06:59 06:59
Intake Total 480 / 480 360 / 360
Balance 480 / 480 360 / 360
--- NOTE | 2024-08-23 11:11 | W.DCSUMMARY ---
Discharge Summary
Discharge Data
Date of Admission: 08/18/24
Date of Discharge: 08/23/24
-
Pending Results: No
Hospital Course
73-year-old female with past medical history of hypertension, hyperlipidemia, depression/anxiety, COPD came to the hospital with sepsis secondary to pneumonia and colitis. Patient was initially started on IV antibiotic which was later transitioned
to p.o. antibiotics prior to discharge. For her colitis she was instructed to follow-up with GI outpatient. She also required oxygenation throughout hospitalization. On discharge she required 2 L continuous oxygen. Once her symptoms continue to
improve, she was then discharged home with instructions to follow-up with all her physicians outpatient.
Discharge Plan
-
Patient Disposition: Home with Home Care
Discharge Diagnosis/Procedures: Community-acquired pneumonia
Possible acute colitis
Acute on chronic hypoxic respiratory insufficiency
Diet: As tolerated
Activity: As tolerated
Driving Restrictions: As prior to admission
Bathing Restrictions: None
Referrals:
Blair Woodruff MD [Active] - in two to four weeks
Derrick Crowe DO [Family Provider] - in one week
Prescriptions:
New
Saccharomyces boulardii 250 mg Capsule
250 mg PO BID Qty: 20 0RF
acetaminophen 325 mg Tablet
650 mg PO Q4HPRN PRN (Reason: mild pain/HUNTER/temp> 100.4F) Qty: 0 0RF
pantoprazole 40 mg Tablet,Delayed Release (Dr/Ec)
40 mg PO DAILY Qty: 30 0RF
amoxicillin-pot clavulanate 875-125 mg tablet
1 tab PO BID Qty: 14 0RF
Continued
lorazepam 1 MG tablet
1 mg PO HSPRN PRN (Reason: sleep/anxiety)
ipratropium-albuterol 3 ML solution for nebulization
3 ml inhalation R QID
atenolol 25 MG tablet
25 mg PO HS
sertraline 100 mg Tablet
150 mg PO DAILY
prednisone 5 mg Tablet
10 mg PO DAILY
lorazepam 1 mg Tablet
0.5 mg PO DAILYPRN PRN (Reason: anxiety)
levalbuterol tartrate 45 mcg/actuation Hfa Aerosol Inhaler
2 inh INHALATION R Q6HPRN PRN (Reason: sob)
Breztri Aerosphere 160-9-4.8 mcg/actuation Hfa Aerosol Inhaler
2 inh INHALATION R BID
Patient Comments:
08/18/24: Patient switches between this and Trelegy depending on free samples from doctor.
Discharge Orders:
Discharge Patient (As Directed); Ordered 08/23/24
Ordered By: Kingsley Haines
Discharge Date and Time
Discharge Date/Time: 08/23/24 14:31
Print Language: IRISH
[2024-08-23] MEDS: TORADOL 15 MG IV (12:38)
--- NOTE | 2024-08-23 14:34 | PTCARENOTE ---
patient medicated with PRN Ativan for c/o anxiety with good relief. Also, medicated with Tylenol for frontal lobe headache and medicated with PRN Toradol for c/o right lower back pain with good relief, denies sob at rest and with exertion,
independent, vss, for discharge to home on 2l NC, connected to portable oxygen tank prior to d/c.
== END 2024-08-23 14:31 | disposition home health service (06) | DRG 871 ==
LOC: 3 WEST ACU 19:18
PROVIDERS: ADMITTING PHYSICIAN Internal Medicine; ATTENDING PHYSICIAN Internal Medicine; EMERGENCY PHYSICIAN Student in an Organized Health Care Education/Training Program; FAMILY PHYSICIAN Family Medicine
DX: A41.89 Other specified sepsis (principal); J18.9 Pneumonia, unspecified organism; J44.0 Chronic obstructive pulmonary disease with (acute) lower respiratory infection; Z11.52 Encounter for screening for COVID-19; K52.9 Noninfective gastroenteritis and colitis, unspecified; F41.9 Anxiety disorder, unspecified; F32.A Depression, unspecified; Z87.891 Personal history of nicotine dependence; Z99.81 Dependence on supplemental oxygen
CPT/HCPCS: 71046; 74177; 80048; 80053; 80061; 82306; 83605; 83690; 83735; 84100; 85025; 85027; 85379; 87040; 87045; 87046; 87205; 87324; 87427; 87449; 87502; 87641; 87811; 93005; 94640; 96365; 96366; 96367; 97162; 99285; Q9967

== ENCOUNTER 2024-12-22 06:24 | Day surgery (SDC) | payer OTHER, SELFPAY ==
[2024-12-22 10:30] VITALS: BP 141/85
[2024-12-22 10:43] VITALS: BMI 42.1
[2024-12-22 10:44] VITALS: BMI 42.1
[2024-12-22] MEDS: ZOFRAN 4 MG IV (11:14)
[2024-12-22] MEDS: NSS (PRESERVATIVE FREE) 8 ML IV (11:14)
[2024-12-22] MEDS: PEPCID 20 MG IV (11:14)
[2024-12-22 12:41] VITALS: BP 156/106
[2024-12-22 12:42] VITALS: BP 153/77
[2024-12-22 12:45] VITALS: BP 153/79
[2024-12-22 13:00] VITALS: BP 146/90
[2024-12-22 13:15] VITALS: BP 140/85
== END 2024-12-22 13:40 | disposition home or self-care (01) ==
LOC: SDS 06:24
PROVIDERS: ATTENDING PHYSICIAN Internal Medicine Gastroenterology
DX: Z12.11 Encounter for screening for malignant neoplasm of colon (principal); D12.5 Benign neoplasm of sigmoid colon; K57.30 Diverticulosis of large intestine without perforation or abscess without bleeding; K64.8 Other hemorrhoids; K64.4 Residual hemorrhoidal skin tags; K29.70 Gastritis, unspecified, without bleeding; K31.7 Polyp of stomach and duodenum; K31.89 Other diseases of stomach and duodenum; R10.13 Epigastric pain; Z86.0101 Personal history of adenomatous and serrated colon polyps; Z98.0 Intestinal bypass and anastomosis status; Z80.0 Family history of malignant neoplasm of digestive organs
CPT/HCPCS: 45385; 43239; 88305; 88342

== ENCOUNTER → 2025-01-04 12:16 | Outpatient (REF) | payer OTHER, SELFPAY | LOC: RAD 12:16 | PROVIDERS: ATTENDING PHYSICIAN Internal Medicine Critical Care Medicine; FAMILY PHYSICIAN Family Medicine | DX: J44.9 Chronic obstructive pulmonary disease, unspecified (principal); Z87.01 Personal history of pneumonia (recurrent) | CPT/HCPCS: 71250 ==

== ENCOUNTER → 2025-01-25 13:48 | Outpatient (REF) | payer OTHER, SELFPAY | LOC: HWRCS 13:48 | PROVIDERS: ATTENDING PHYSICIAN Internal Medicine Critical Care Medicine; FAMILY PHYSICIAN Family Medicine | DX: R09.02 Hypoxemia (principal); J44.9 Chronic obstructive pulmonary disease, unspecified | CPT/HCPCS: 93306 ==